=== PATIENT | male | born 1990 | race Caucasian/White ===

== ENCOUNTER 2023-08-30 20:18 | Emergency (ER) | payer MEDICAID ==
[~2023-08-30] VITALS: Ht 177.8 cm; Wt 105.9 kg
[2023-08-30 21:40] VITALS: TEMP 97.4; O2SAT 97
[2023-08-30] MEDS: TETANUS, DIPHTHERIA, PERTUSSIS VAC/PF 0.5ML (>10YR OLD) IM ONE (23:45)
[2023-08-30] MEDS: LIDOCAINE HCL/PF 1% 10 MG/ML 5ML VIAL INFIL ONE (23:45)
[2023-08-31] MEDS ORDERED: BO1 TP (00:29)
[2023-08-31] MEDS ORDERED: IBUP-2029 MT (00:29)
[2023-08-31] MEDS: BACITRACIN ZINC OINT UDPKT TOP ONE (00:43)
[2023-08-31 00:55] VITALS: BP 150/91; PULSE 74; RESP 18
== END 2023-08-31 01:00 | disposition home or self-care (01) ==
LOC: ER 20:18
DX: S61.011A Laceration without foreign body of right thumb without damage to nail, initial encounter (principal); X58.XXXA Exposure to other specified factors, initial encounter; Y93.89 Activity, other specified; Y92.89 Other specified places as the place of occurrence of the external cause; Y99.8 Other external cause status
CPT/HCPCS: 90471; 99283; 90715; J3490; Z7610; 99282

== ENCOUNTER 2023-09-02 11:36 | Emergency (ER) | payer MEDICAID ==
[~2023-09-02] VITALS: Ht 172.7 cm; Wt 100.0 kg
[~2023-09-02 11:36] MED LIST: BO1 TP; IBUP-2029 MT
[2023-09-02 11:47] VITALS: TEMP 98.4; O2SAT 96
[2023-09-02 12:40] VITALS: BP 122/66; PULSE 68; RESP 19
== END 2023-09-02 13:01 | disposition home or self-care (01) ==
LOC: ER 11:36
DX: S61.011D Laceration without foreign body of right thumb without damage to nail, subsequent encounter (principal); X58.XXXD Exposure to other specified factors, subsequent encounter
CPT/HCPCS: 99281

== ENCOUNTER → 2023-09-07 | Emergency (ER) | payer MEDICAID ==
[~2023-09-07] VITALS: Ht 175.3 cm; Wt 105.0 kg
[2023-09-07 11:39] VITALS: BP 121/74; PULSE 80; RESP 18; TEMP 98; O2SAT 97
== END ==
LOC: ER 14:25
DX: S61.011D Laceration without foreign body of right thumb without damage to nail, subsequent encounter (principal); Z48.02 Encounter for removal of sutures; X58.XXXD Exposure to other specified factors, subsequent encounter
CPT/HCPCS: 99281